=== PATIENT | female | born 1965 | race Caucasian/White ===

== ENCOUNTER 2017-03-04 13:08 | Emergency (ER) | payer MEDICAID ==
[~2017-03-04] VITALS: Wt 47.5 kg
[~2017-03-04 13:08] MED LIST: ALPR0.5T PO; BISA-57 PO; CARAS PO; ESOM40CA PO; HYDR-762 PO; LD2VS100B MM; LORA1TAB PO; NA P118E PR; ONDA4TAB35 PO; PARO20TA58 PO; POLY17PO6 PO; SENN-36 PO
--- NOTE | 2017-03-04 13:54 | ERA ---
ER Documentation Chief Complaint Date/Time DATE: 03/04/17 TIME: 13:53 Chief Complaint Chronic abdominal pain HPI The patient is a 51-year-old female, presenting to the ER because of chronic abdominal pain. She was seen by her general surgeon Dr. Arreguin who sent her to the ER. She was seen by heel painter when she was hospitalized about 2 months, however she did not follow-up with him as an outpatient. He denies fever, chills, neck pain, chest pain. She denies nausea, vomiting, dysuria, diarrhea, constipation. Past medical history: History of breast cancer status post chemotherapy and radiation therapy, chronic abdominal pain, anemia, GERD, depression Past surgical history: Right partial mastectomy, some of obstruction, appendectomy ROS All systems reviewed and are negative except as per history of present illness. Medications Home Meds Active Scripts Hydrocodone/Acetaminophen ([place] 5-325 Tablet) 1 Each Tablet, 1 EACH PO Q6, #10 TAB Prov:ALEX DE LA TORRE MD 03/04/17 Tramadol HCl (Tramadol HCl) 50 Mg Tablet, 50 MG PO Q6 Y for PAIN, #20 TAB Prov:ALEX DE LA TORRE MD 03/04/17 Reported Medications Esomeprazole Mag Trihydrate (Nexium) 40 Mg Capsule.dr, 40 MG PO QAM 01/31/16 Paroxetine Hcl* (Paxil*) 20 Mg Tablet, 20 MG PO DAILY, TAB 03/29/15 Discontinued Scripts Hydrocodone Bit-Acetaminophen* ([place]*) 10-325 Mg Tablet, 1 TAB PO Q4H Y for PAIN, #20 TAB Prov:ANGE WATTS DO 02/19/16 Lorazepam* (Lorazepam*) 1 Mg Tablet, 1 MG PO Q8 Y for ANXIETY, #20 TAB Prov:ANGE WATTS DO 02/19/16 Lidocaine Viscous 2%* (Lidocaine Viscous 2%*) 100 Ml Soln, 15 ML MM Q 3-4H, # 120 ML Prov:ANGE WATTS DO 02/19/16 Na Phos,M-B/Na Phos,Di-Ba* (Fleet* Enema) 118 Ml Enema, 118 ML DE DAILY Y for CONSTIPATION, #5 ENEMA Prov:ALEX DE LA TORRE MD 02/17/16 Na Phos,M-B/Na Phos,Di-Ba* (Fleet* Enema) 118 Ml Enema, 118 ML DE Q48H Y for CONSTIPATION, #10 ENEMA Prov:ALEX DE LA TORRE MD 02/17/16 Polyethylene Glycol* (Miralax*) 17 Gm Powd.pack, 17 GM PO DAILY, #7 Prov:ALEX DE LA TORRE MD 02/17/16 Ondansetron Hcl* (Zofran* ODT) 4 mg -ODT Tab.disper, 4 MG PO Q6H Y for NAUSEA/ VOMITING, #20 TAB Prov:BURNETT,JIM V. WELD ENGINEER 02/16/16 Hydrocodone Bit-Acetaminophen* ([place]*) 10-325 Mg Tablet, 1 TAB PO Q4H Y for PAIN, #20 TAB Prov:BURNETT,JIM V. WELD ENGINEER 02/16/16 Bisacodyl* (Dulcolax*) 5 Mg Tablet.dr, 10 MG PO DAILY Y for CONSTIPATION for 30 Days, TAB Prov:BURNETT,JIM V. WELD ENGINEER 02/16/16 Sucralfate* (Carafate*) 1 Gm/10 Ml Susp, 1 GM PO QID for 30 Days, EA Prov:BURNETT,JIM V. WELD ENGINEER 02/16/16 Sennosides* (Senokot*) 1 Tab Tab, 2 TAB PO BID for 30 Days, TAB Prov:BURNETT,JIM V. WELD ENGINEER 02/16/16 Alprazolam* (Xanax*) 0.5 Mg Tab, 1 MG PO Q8H Y for ANXIETY, #30 TAB Prov:CONOR AMOR 06/13/15 Allergies Allergies: Coded Allergies: sulfamethoxazole (Unverified Allergy, Unknown, 02/13/16) trimethoprim (Unverified Allergy, Unknown, 02/13/16) PMhx/Soc History of Surgery: Yes (mastectomy) Anesthesia Reaction: No Hx Neurological Disorder: No Hx Respiratory Disorders: No Hx Cardiac Disorders: No Hx Psychiatric Problems: No Hx Miscellaneous Medical Probl: Yes (breast Ca, getting radiation) Hx Alcohol Use: No Hx Substance Use: No Hx Tobacco Use: No Physical Exam Vitals Vital Signs Date Time Temp Pulse Resp B/P Pulse Ox O2 Delivery O2 Flow Rate FiO2 03/04/17 16:38 91 12 111/74 100 Room Air 03/04/17 13:13 98.2 94 20 108/55 96 Physical Exam Const: No acute distress. Head: Atraumatic. Eyes: Normal Conjunctiva. ENT: Normal External Ears, Nose and Mouth. Neck: Full range of motion. No meningismus. Resp: Clear to auscultation bilaterally. Cardio: Regular rate and rhythm, no murmurs. Abd: Soft, non distended, normal bowel sounds, diffuse and vague abdominal tenderness, no rigidity, rebound, CVA tenderness Skin: No petechiae or rashes. Back: No midline or flank tenderness. Ext: No cyanosis, or edema. Neur: Awake and alert. No focal deficit Psych: Normal Mood and Affect. Result Diagram: 03/04/17 1435 03/04/17 1435 Results 24 hrs Laboratory Tests Test 03/04/17 14:35 03/04/17 14:45 White Blood Count 5.610^3/ul Red Blood Count 4.7510^6/ul Hemoglobin 13.9g/dl Hematocrit 41.9% Mean Corpuscular Volume 88.2fl Mean Corpuscular Hemoglobin 29.3pg Mean Corpuscular Hemoglobin Concent 33.2g/dl Red Cell Distribution Width 12.8% Platelet Count 41468^3/UL Mean Platelet Volume 10.0fl Neutrophils % 54.1% Lymphocytes % 36.3% Monocytes % 7.0% Eosinophils % 1.6% Basophils % 0.5% Nucleated Red Blood Cells % 0.0/100WBC Neutrophils # 3.010^3/ul Lymphocytes # 2.010^3/ul Monocytes # 0.410^3/ul Eosinophils # 0.110^3/ul Basophils # 0.010^3/ul Nucleated Red Blood Cells # 0.010^3/ul Sodium Level 141mmol/L Potassium Level 3.7mmol/L Chloride Level 98mmol/L Carbon Dioxide Level 30mmol/L Anion Gap 17 Blood Urea Nitrogen 8mg/dl Creatinine 0.76mg/dl Glucose Level 94mg/dl Calcium Level 9.7mg/dl Total Bilirubin 0.3mg/dl Direct Bilirubin 0.00mg/dl Indirect Bilirubin 0.3mg/dl Aspartate Amino Transf (AST/SGOT) 42IU/L Alanine Aminotransferase (ALT/SGPT) 66IU/L Alkaline Phosphatase 85IU/L Total Protein 7.8g/dl Albumin 5.0g/dl Globulin 2.80g/dl Albumin/Globulin Ratio 1.78 Lipase 28U/L Bedside Urine pH (LAB) 8.5 Bedside Urine Protein (LAB) Negative Bedside Urine Glucose (UA) Negative Bedside Urine Ketones (LAB) Negative Bedside Urine Blood Trace-intact Bedside Urine Nitrite (LAB) Negative Bedside Urine Leukocyte Esterase (L Negative Current Medications Medications (Trade) Dose Ordered Sig/[place] Route PRN Reason Start Time Stop Time Status Last Admin Dose Admin Sodium Chloride (NS) 1,000 ml @ 1,000 mls/hr Q1H STAT IV 03/04/17 14:10 03/04/17 15:09 DC 03/04/17 14:45 Morphine Sulfate (morphine) 2 mg ONCE STAT IV 03/04/17 14:10 03/04/17 14:11 Cancel Ondansetron HCl (Zofran Inj) 4 mg ONCE STAT IV 03/04/17 14:10 03/04/17 14:12 DC 03/04/17 14:44 Hydromorphone HCl (Dilaudid) 1 mg ONCE STAT IV 03/04/17 14:41 03/04/17 14:43 DC 03/04/17 14:45 Diphenhydramine HCl (Benadryl) 25 mg ONCE ONCE IV 03/04/17 16:00 03/04/17 16:01 DC 03/04/17 15:36 Diphenhydramine HCl (Benadryl) 50 mg STK-MED ONCE .ROUTE 03/04/17 15:33 03/04/17 15:34 DC Procedures/[place] [address] Radiology Main Line: [phone] DIAGNOSTIC IMAGING REPORT Patient: MELO DUBON : 1965 Age: 51 Sex: F MR #: [id number] DOS: 03/04/17 1410 Ordering MD: ALEX DE LA TORRE MD Location: E/R Room/Bed: PROCEDURE: XR Chest. CLINICAL INDICATION: chest pain TECHNIQUE: Single frontal view of the chest was obtained COMPARISON: 02/13/16 FINDINGS: The heart and mediastinum are within normal limits. The lungs are clear. There is no pleural effusion or pneumothorax. RPTAT: AA IMPRESSION: No acute disease. .Earnest Wilson MD, Date Time Electronically viewed and signed by .Earnest Wilson MD, MD on 03/04/2017 14: 53 .S/ CC: ALEX DE LA TORRE MD [place] [address] Radiology Main Line: [phone] DIAGNOSTIC IMAGING REPORT Patient: MELO DUBON : 1965 Age: 51 Sex: F MR #: [id number] DOS: 03/04/17 1410 Ordering MD: ALEX DE LA TORRE MD Location: E/R Room/Bed: PROCEDURE: CT Abdomen and pelvis without contrast. CLINICAL INDICATION: Abdominal pain. Nausea and vomiting. TECHNIQUE: CT scan of the abdomen and pelvis with contrast was performed on a multidetector high-resolution CT scan. . Coronal and sagittal reformatted images were obtained from the axial source images. Standard CT scan of the abdomen pelvis without contrast protocols were performed. The total exam CTDI equals 4.7 mGy and the total exam DLP equals 233.71 mGy-cm. One or more of the following dose reduction techniques were used: - Automated exposure control. - Adjustment of the mA and/or kV according to patient size. Use of iterative reconstruction technique. COMPARISON: CT abdomen pelvis with contrast 02/13/2016 FINDINGS: Again noted is ill-defined low density lesions in the lateral mid to superior and posterior mid to superior right lobe of the liver which correspond to hemangiomas previously described. No new hepatic lesions are demonstrated. The gallbladder is distended but otherwise unremarkable. No evidence biliary ductal dilation. The kidneys are normal in size without renal calcified calculi, hydronephrosis or intra renal masses bilaterally. The ureters are unremarkable. Urinary bladder is unremarkable. The spleen pancreas and adrenal glands are unremarkable. The stomach, small bowel and large bowel are unremarkable. No CT evidence of appendicitis. Negative for intra-abdominal free air, free fluid, abscesses or lymphadenopathy. There is mild dependent lung atelectasis and left basilar scarring. The lung bases are otherwise unremarkable. Stable small anterior inferior right lateral T11 vertebral body lucent lesion. There are no osteoblastic/osteolytic lesions. There are degenerative changes lower thoracic and lumbar spine. There are no acute osseous findings. IMPRESSION: 1. Stable to ill-defined low density lesions involving the right lobe of the liver which on previous studies were demonstrated to represent hemangiomas. 2. No evidence of calcified urinary calculi or obstructive uropathy. 3. No evidence of gastrointestinal disease. Negative for intra-abdominal free air fluid abscesses or lymphadenopathy. RPTAT:AAJJ Physician Jaimee Date Time Electronically viewed and signed by Physician Jaimee on 03/04/2017 15:33 BM/ CC: ALEX DE LA TORRE MD MEDICAL MAKING DECISION: The patient is a 51-year-old female, presenting with chronic abdominal pain of unclear etiology. She was treated with Dilaudid 1 mg IV for pain and Zofran 4 mg IV for nausea and 1 L normal subacute acute dehydration with good response. The differential diagnoses considered include but are not limited to cholelithiasis, cholecystitis, cystitis, pancreatitis, hepatitis, gastritis, peptic ulcer disease, gastric ulcer, appendicitis, diverticulitis, cholangitis, choledocholithiasis, partial small bowel obstruction. Departure Diagnosis: Primary Impression: Abdominal pain Condition: Good Comments She was discharged with [place] I discussed the findings with the patient. I advised the patient to follow-up with the primary physician in about 1-2 days, sooner if needed and return if any concern. ALEX DE LA TORRE MD March 04, 2017 13:54
[2017-03-04] MEDS ORDERED: ONDANSETRON 4 MG INJ IV STA (14:10)
[2017-03-04] MEDS ORDERED: morphine 2 MG INJ IV STA (14:10)
[2017-03-04] MEDS ORDERED: SOD CHLORIDE 0.9% 1,000 ML IV STA (14:10)
[2017-03-04] MEDS ORDERED: HYDROmorphONE 1 MG/ML SYG IV STA (14:41)
[2017-03-04 14:44] LABS: URINE BLOOD (Dip) POC Trace-intact (NEGATIVE)
--- NOTE | 2017-03-04 14:53 | RADRPT ---
PROCEDURE: XR Chest. CLINICAL INDICATION: chest pain TECHNIQUE: Single frontal view of the chest was obtained COMPARISON: 02/13/16 FINDINGS: The heart and mediastinum are within normal limits. The lungs are clear. There is no pleural effusion or pneumothorax. RPTAT: AA IMPRESSION: No acute disease. .Earnest Wilson MD, Date Time Electronically viewed and signed by .Earnest Wilson MD, on 03/04/2017 14:53 .S/
[2017-03-04 14:57] LABS: ADD SCAN DIFF NO
[2017-03-04 14:58] LABS: BASOPHILS % 0.5 % (0.0-2.0); EOSINOPHILS # 0.1 10^3/ul (0.0-0.5); EOSINOPHILS % 1.6 % (0.0-7.0); HEMATOCRIT 41.9 % (37.0-47.0); HEMOGLOBIN 13.9 g/dl (12.0-16.0); LYMPHOCYTES % 36.3 % (15.0-51.0); MEAN CORPUSCULAR HEMOGLOBIN 29.3 pg (29.0-33.0); MEAN CORPUSCULAR HGB CONC 33.2 g/dl (32.0-37.0); MEAN CORPUSCULAR VOLUME 88.2 fl (82.0-101.0); MONOCYTE # 0.4 10^3/ul (0.3-0.9); NEUTROPHILS % 54.1 % (39.0-77.0); PLATELET COUNT 270 10^3/UL (140-415); RED BLOOD COUNT 4.75 10^6/ul (4.20-5.40); RED CELL DISTRIBUTION WIDTH 12.8 % (11.5-14.5); WHITE BLOOD COUNT 5.6 10^3/ul (4.8-10.8)
[2017-03-04 15:19] LABS: POTASSIUM 3.7 mmol/L (3.5-5.1)
[2017-03-04 15:21] LABS: ALBUMIN/GLOBULIN RATIO 1.78; BILIRUBIN,INDIRECT 0.3 mg/dl (0-1.1); BILIRUBIN,TOTAL 0.3 mg/dl (0.2-1.3); CREATININE 0.76 mg/dl (0.44-1.00); TOTAL PROTEIN 7.8 g/dl (6.1-8.1)
[2017-03-04 15:22] LABS: CALCIUM 9.7 mg/dl (8.4-10.2)
[2017-03-04] MEDS ORDERED: DIPHENHYDRAMINE 50 MG INJ ONE (15:33)
--- NOTE | 2017-03-04 15:34 | RADRPT ---
PROCEDURE: CT Abdomen and pelvis without contrast. CLINICAL INDICATION: Abdominal pain. Nausea and vomiting. TECHNIQUE: CT scan of the abdomen and pelvis with contrast was performed on a multidetector high-r esolution CT scan. . Coronal and sagittal reformatted images were obtained from the axial source i mages. Standard CT scan of the abdomen pelvis without contrast protocols were performed. The total exam CTDI equals 4.7 mGy and the total exam DLP equals 233.71 mGy-cm. One or more of the following dose reduction techniques were used: - Automated exposure control. - Adjustment of the mA and/or kV according to patient size. Use of iterative reconstruction technique. COMPARISON: CT abdomen pelvis with contrast 02/13/2016 FINDINGS: Again noted is ill-defined low density lesions in the lateral mid to superior and posterior mid to s uperior right lobe of the liver which correspond to hemangiomas previously described. No new hepati c lesions are demonstrated. The gallbladder is distended but otherwise unremarkable. No evidence b iliary ductal dilation. The kidneys are normal in size without renal calcified calculi, hydronephrosis or intra renal masses bilaterally. The ureters are unremarkable. Urinary bladder is unremarkable. The spleen pancreas and adrenal glands are unremarkable. The stomach, small bowel and large bowel are unremarkable. No CT evidence of appendicitis. Negativ e for intra-abdominal free air, free fluid, abscesses or lymphadenopathy. There is mild dependent lung atelectasis and left basilar scarring. The lung bases are otherwise un remarkable. Stable small anterior inferior right lateral T11 vertebral body lucent lesion. There are no osteobl astic/osteolytic lesions. There are degenerative changes lower thoracic and lumbar spine. There ar e no acute osseous findings. IMPRESSION: 1. Stable to ill-defined low density lesions involving the right lobe of the liver which on previou s studies were demonstrated to represent hemangiomas. 2. No evidence of calcified urinary calculi or obstructive uropathy. 3. No evidence of gastrointestinal disease. Negative for intra-abdominal free air fluid abscesses or lymphadenopathy. RPTAT:AAJJ Physician Jaimee Date Time Electronically viewed and signed by Physician Jaimee on 03/04/2017 15:33 BM/
[2017-03-04] MEDS ORDERED: DIPHENHYDRAMINE 50 MG INJ IV ONE (16:00)
[2017-03-04] MEDS ORDERED: TRAM50TA2 PO (16:25)
[2017-03-04 16:38] VITALS: BP 111/74; PULSE 91; RESP 12
[2017-03-04] MEDS ORDERED: HYDR-906 PO (16:40)
== END 2017-03-04 16:46 | disposition home or self-care (01) ==
LOC: E/R 13:08
DX: R10.84 Generalized abdominal pain (principal); R40.2142 Coma scale, eyes open, spontaneous, at arrival to emergency department; R40.2252 Coma scale, best verbal response, oriented, at arrival to emergency department; R40.2362 Coma scale, best motor response, obeys commands, at arrival to emergency department; Z85.3 Personal history of malignant neoplasm of breast
CPT/HCPCS: 36415; 71010; 74176; 80053; 81003; 83690; 85025; 96374; 96375; J1170; J1200; J2405; J7030; Z7502; J2270

== ENCOUNTER 2017-07-14 12:56 | Emergency (ER) | payer MEDICAID ==
[~2017-07-14] VITALS: Ht 165.1 cm; Wt 48.0 kg
[~2017-07-14 12:56] MED LIST changes: -ALPR0.5T PO; -BISA-57 PO; -CARAS PO; -HYDR-762 PO; +HYDR-906 PO; -LD2VS100B MM; -LORA1TAB PO; -NA P118E PR; -ONDA4TAB35 PO; -POLY17PO6 PO; -SENN-36 PO; +TRAM50TA2 PO
[2017-07-14 12:59] VITALS: Ht 165.1 cm; Wt 48.0 kg
--- NOTE | 2017-07-14 14:24 | ERA ---
ER Documentation Chief Complaint Date/Time DATE: 07/14/17 TIME: 14:23 Chief Complaint Chronic abdominal pain HPI The patient is a 52-year-old female, presenting with chronic abdominal pain, associated with constipation for the last week. She has presented to the ER multiple times with similar symptoms. He denies fever, chills, neck pain, chest pain, vomiting, dysuria. She does not smoke or drink Past medical history: History of right breast cancer, GERD, chronic abdominal pain, chronic pain syndrome, depression Past surgical history: Small bowel obstruction, appendectomy ROS All systems reviewed and are negative except as per history of present illness. Medications Home Meds Active Scripts Hydrocortisone Acetate (Anusol-Hc) 25 Mg Supp.rect, 1 SUPP MA BID Y for HEMORROID PAIN/ITCHING, #12 SUPP.RECT Prov:ALEX DE LA TORRE MD 07/14/17 Sucralfate* (Carafate*) 1 Gm Tab, 1 GM PO AC MEALS AND BEDTIME for 7 Days, TAB Prov:ALEX DE LA TORRE MD 07/14/17 Mineral Oil* (Fleet* Mineral Oil Enema) 133 Ml Oil, 133 ML MA DAILY Y for CONSTIPATION, #2 ENEMA Prov:ALEX DE LA TORRE MD 07/14/17 Bisacodyl* (Dulcolax*) 5 Mg Tablet.dr, 10 MG MA DAILY Y for CONSTIPATION, #10 TAB Prov:ALEX DE LA TORRE MD 07/14/17 Polyethylene Glycol* (Miralax*) 17 Gm Powd.pack, 17 GM PO DAILY, #7 Prov:ALEX DE LA TORRE MD 07/14/17 Reported Medications Esomeprazole Mag Trihydrate (Nexium) 40 Mg Capsule.dr, 40 MG PO QAM 01/31/16 Paroxetine Hcl* (Paxil*) 20 Mg Tablet, 20 MG PO DAILY, TAB 03/29/15 Discontinued Scripts Hydrocodone/Acetaminophen ([place] 5-325 Tablet) 1 Each Tablet, 1 EACH PO Q6, #10 TAB Prov:ALEX DE LA TORRE MD 03/04/17 Tramadol HCl (Tramadol HCl) 50 Mg Tablet, 50 MG PO Q6 Y for PAIN, #20 TAB Prov:ALEX DE LA TORRE MD 03/04/17 Allergies Allergies: Coded Allergies: morphine (Verified Allergy, Severe, rash, 07/14/17) sulfamethoxazole (Unverified Allergy, Unknown, 07/14/17) trimethoprim (Unverified Allergy, Unknown, 07/14/17) PMhx/Soc History of Surgery: Yes (mastectomy) Anesthesia Reaction: No Hx Neurological Disorder: No Hx Respiratory Disorders: No Hx Cardiac Disorders: No Hx Psychiatric Problems: No Hx Miscellaneous Medical Probl: Yes (breast Ca, getting radiation, GERD) Hx Alcohol Use: No Hx Substance Use: No Hx Tobacco Use: No Physical Exam Vitals Vital Signs Date Time Temp Pulse Resp B/P Pulse Ox O2 Delivery O2 Flow Rate FiO2 07/14/17 18:19 98.3 72 16 104/68 96 Room Air 07/14/17 12:59 98.4 76 18 92/66 96 Physical Exam Const: No acute distress.Dehydrated Head: Atraumatic. Eyes: Normal Conjunctiva. ENT: Normal External Ears, Nose and Mouth. Neck: Full range of motion. No meningismus. Resp: Clear to auscultation bilaterally. Cardio: Regular rate and rhythm. Abd: Soft, non distended, normal bowel sounds, Vague and mild diffuse abdominal tenderness, no rigidity, rebound, CVA tenderness Skin: No petechiae or rashes. Back: No midline or flank tenderness. Ext: No cyanosis, or edema. Neur: Awake and alert. No focal deficit Psych: Normal Mood and Affect.. Result Diagram: 07/14/17 1500 07/14/17 1500 Results 24 hrs Laboratory Tests Test 07/14/17 15:00 07/14/17 15:58 White Blood Count 7.210^3/ul Red Blood Count 4.2910^6/ul Hemoglobin 12.7g/dl Hematocrit 38.0% Mean Corpuscular Volume 88.6fl Mean Corpuscular Hemoglobin 29.6pg Mean Corpuscular Hemoglobin Concent 33.4g/dl Red Cell Distribution Width 12.5% Platelet Count 83577^3/UL Mean Platelet Volume 10.1fl Neutrophils % 53.9% Lymphocytes % 35.3% Monocytes % 7.0% Eosinophils % 3.1% Basophils % 0.6% Nucleated Red Blood Cells % 0.0/100WBC Neutrophils # 3.910^3/ul Lymphocytes # 2.510^3/ul Monocytes # 0.510^3/ul Eosinophils # 0.210^3/ul Basophils # 0.010^3/ul Nucleated Red Blood Cells # 0.010^3/ul Sodium Level 138mmol/L Potassium Level 4.0mmol/L Chloride Level 99mmol/L Carbon Dioxide Level 31mmol/L Anion Gap 12 Blood Urea Nitrogen 7mg/dl Creatinine 0.78mg/dl Glucose Level 92mg/dl Calcium Level 9.5mg/dl Total Bilirubin 0.2mg/dl Direct Bilirubin 0.00mg/dl Indirect Bilirubin 0.2mg/dl Aspartate Amino Transf (AST/SGOT) 21IU/L Alanine Aminotransferase (ALT/SGPT) 38IU/L Alkaline Phosphatase 79IU/L Total Protein 7.3g/dl Albumin 4.6g/dl Globulin 2.70g/dl Albumin/Globulin Ratio 1.70 Lipase 41U/L Bedside Urine pH (LAB) 7.0 Bedside Urine Protein (LAB) Negative Bedside Urine Glucose (UA) Negative Bedside Urine Ketones (LAB) Negative Bedside Urine Blood Negative Bedside Urine Nitrite (LAB) Negative Bedside Urine Leukocyte Esterase (L Negative Current Medications Medications (Trade) Dose Ordered Sig/[place] Route PRN Reason Start Time Stop Time Status Last Admin Dose Admin Sodium Chloride (NS) 1,490 ml @ 1,490 mls/hr BOLUS X1 ONCE IV 07/14/17 15:00 07/14/17 15:59 DC 07/14/17 15:21 Ondansetron HCl (Zofran Inj) 4 mg ONCE STAT IV 07/14/17 14:52 07/14/17 14:54 DC 07/14/17 15:21 Hydromorphone HCl (Dilaudid) 0.5 mg ONCE STAT IV 07/14/17 15:45 07/14/17 15:49 DC 07/14/17 16:01 Procedures/[place] [address] Radiology Main Line: [phone] DIAGNOSTIC IMAGING REPORT Patient: MELO DUBON : 1965 Age: 52 Sex: F MR #: [id number] DOS: 07/14/17 1452 Ordering MD: ALEX DE LA TORRE MD Location: E/R Room/Bed: PROCEDURE: CT Abdomen and Pelvis without contrast. CLINICAL INDICATION: Abdominal pain TECHNIQUE: CT of the abdomen and pelvis was performed on a multi-detector scanner without IV contrast. Coronal and sagittal images were reformatted from the axial data set. One or more of the following dose reduction techniques were used: automated exposure control, adjustment of the mA and/or kV according to patient size, use of iterative reconstruction technique. CTDI = 4.99 mGy. DLP = 254.1 mGy-cm. COMPARISON: CT, 03/04/2017 and 02/13/2016 FINDINGS: The lung bases are clear. The heart size is normal, without pericardial effusion. Hepatic hypodensities are again noted, stable over time, corresponding to benign hemangioma is seen on prior exam. Gallbladder, biliary tree, pancreas, spleen, adrenal glands and kidneys are unremarkable. No urolithiasis or obstructive uropathy is identified. The stomach is grossly unremarkable. The aorta is of normal caliber. There is no retroperitoneal lymphadenopathy. The ayah hepatis region is clear. No bowel obstruction, free intraperitoneal air or abscess is identified. Mild to moderate retained fecal material is suggestive of constipation. No diverticulosis, diverticulitis, colitis or appendicitis is seen. Urinary bladder is grossly unremarkable. Uterus is surgically absent. No pelvic mass, free fluid or lymphadenopathy is identified. The surrounding osseous structures are unremarkable. No osteolytic or osteoblastic lesion is detected. IMPRESSION: 1. Mild to moderate amount of retained fecal material is suggestive of constipation. 2. Uterus is surgically absent. 3. No mass, lymphadenopathy, or focal acute inflammatory process is identified. RPTAT: AAQQ .Erik Knowles MD, MD Date Time Electronically viewed and signed by .Erik Knowles MD, MD on 07/14/2017 16: 02 .R/ CC: ALEX DE LA TORRE MD MEDICAL MAKING DECISION: The patient is a 52-year-old female, presenting with chronic abdominal pain, constipation, acute dehydration. She was treated with normosaline 30 mL/kg IV for acute dehydration, Zofran 4mg IV for nausea, Dilaudid 0.5 mg IV for nausea with good response. The differential diagnoses considered include but are not limited to cholelithiasis, cholecystitis, cystitis, pancreatitis, hepatitis, gastritis, peptic ulcer disease, gastric ulcer, appendicitis, diverticulitis, cholangitis, choledocholithiasis, partial small bowel obstruction. Departure Diagnosis: Primary Impression: Chronic abdominal pain Additional Impressions: Constipation Dehydration Condition: Good Additional Instructions: She was discharged with MiraLAX, Dulcolax suppository, Fleet enema X I discussed the findings with the patient. I advised the patient to follow-up with the primary physician in about 1-2 days, sooner if needed and return if any concern. ALEX DE LA TORRE MD Jul 14, 2017 14:24
[2017-07-14] MEDS ORDERED: ONDANSETRON 4 MG INJ IV STA (14:52)
[2017-07-14] MEDS ORDERED: SOD CHLORIDE 0.9% IV ONE (15:00)
[2017-07-14 15:26] LABS: BASOPHILS % 0.6 % (0.0-2.0); EOSINOPHILS # 0.2 10^3/ul (0.0-0.5); EOSINOPHILS % 3.1 % (0.0-7.0); HEMOGLOBIN 12.7 g/dl (12.0-16.0); LYMPHOCYTES # 2.5 10^3/ul (0.8-2.9); LYMPHOCYTES % 35.3 % (15.0-51.0); MEAN CORPUSCULAR HEMOGLOBIN 29.6 pg (29.0-33.0); MEAN CORPUSCULAR HGB CONC 33.4 g/dl (32.0-37.0); MEAN CORPUSCULAR VOLUME 88.6 fl (82.0-101.0); MEAN PLATELET VOLUME 10.1 fl (7.4-10.4); MONOCYTE # 0.5 10^3/ul (0.3-0.9); NEUTROPHIL # 3.9 10^3/ul (1.6-7.5); NEUTROPHILS % 53.9 % (39.0-77.0); PLATELET COUNT 261 10^3/UL (140-415); RED BLOOD COUNT 4.29 10^6/ul (4.20-5.40); RED CELL DISTRIBUTION WIDTH 12.5 % (11.5-14.5); WHITE BLOOD COUNT 7.2 10^3/ul (4.8-10.8)
[2017-07-14] MEDS ORDERED: HYDROmorphONE 1 MG/ML SYG IV STA (15:45)
[2017-07-14 15:46] LABS: ALBUMIN 4.6 g/dl (3.3-4.9); ALBUMIN/GLOBULIN RATIO 1.7; BILIRUBIN,INDIRECT 0.2 mg/dl (0-1.1); BILIRUBIN,TOTAL 0.2 mg/dl (0.2-1.3); CALCIUM 9.5 mg/dl (8.4-10.2); CREATININE 0.78 mg/dl (0.44-1.00); TOTAL PROTEIN 7.3 g/dl (6.1-8.1)
[2017-07-14 15:52] LABS: URINE BLOOD (Dip) POC Negative (NEGATIVE)
--- NOTE | 2017-07-14 16:02 | RADRPT ---
PROCEDURE: CT Abdomen and Pelvis without contrast. CLINICAL INDICATION: Abdominal pain TECHNIQUE: CT of the abdomen and pelvis was performed on a multi-detector scanner without IV contr ast. Coronal and sagittal images were reformatted from the axial data set. One or more of the foll owing dose reduction techniques were used: automated exposure control, adjustment of the mA and/or k V according to patient size, use of iterative reconstruction technique. CTDI = 4.99 mGy. DLP = 254. 1 mGy-cm. COMPARISON: CT, 03/04/2017 and 02/13/2016 FINDINGS: The lung bases are clear. The heart size is normal, without pericardial effusion. Hepatic hypodens ities are again noted, stable over time, corresponding to benign hemangioma is seen on prior exam. G allbladder, biliary tree, pancreas, spleen, adrenal glands and kidneys are unremarkable. No urolithi asis or obstructive uropathy is identified. The stomach is grossly unremarkable. The aorta is of normal caliber. There is no retroperitoneal lymphadenopathy. The ayah hepatis reg ion is clear. No bowel obstruction, free intraperitoneal air or abscess is identified. Mild to moderate retained f ecal material is suggestive of constipation. No diverticulosis, diverticulitis, colitis or appendici tis is seen. Urinary bladder is grossly unremarkable. Uterus is surgically absent. No pelvic mass, f ree fluid or lymphadenopathy is identified. The surrounding osseous structures are unremarkable. No osteolytic or osteoblastic lesion is detect ed. IMPRESSION: 1. Mild to moderate amount of retained fecal material is suggestive of constipation. 2. Uterus is surgically absent. 3. No mass, lymphadenopathy, or focal acute inflammatory process is identified. RPTAT: AAQQ .Erik Knowles MD, Date Time Electronically viewed and signed by .Erik Knowles MD, on 07/14/2017 16:02 .R/
[2017-07-14] MEDS ORDERED: POLY17PO6 PO (17:57)
[2017-07-14] MEDS ORDERED: BISA-57 PR (17:58)
[2017-07-14] MEDS ORDERED: MINE133E23 PR (17:59)
[2017-07-14] MEDS ORDERED: SUCR1TAB56 PO (18:15)
[2017-07-14] MEDS ORDERED: HYDR25SU23 PR (18:16)
[2017-07-14 18:19] VITALS: BP 104/68; PULSE 72; RESP 16; TEMP 98.3
== END 2017-07-14 18:21 | disposition home or self-care (01) ==
LOC: E/R 12:56
DX: K59.00 Constipation, unspecified (principal); E86.0 Dehydration; R40.2142 Coma scale, eyes open, spontaneous, at arrival to emergency department; R40.2252 Coma scale, best verbal response, oriented, at arrival to emergency department; R40.2362 Coma scale, best motor response, obeys commands, at arrival to emergency department; Z85.3 Personal history of malignant neoplasm of breast
CPT/HCPCS: 36415; 74176; 80053; 81003; 83690; 85025; 96374; 96375; J1170; J2405; Z7502

== ENCOUNTER 2017-07-23 13:05 | Day surgery (SDC) | payer MEDICAID ==
[~2017-07-23] VITALS: Ht 152.4 cm; Wt 46.8 kg
[~2017-07-23 13:05] MED LIST changes: +BISA-57 PR; -HYDR-906 PO; +HYDR25SU23 PR; +MINE133E23 PR; +POLY17PO6 PO; +SUCR1TAB56 PO; -TRAM50TA2 PO
[2017-07-23 13:47] VITALS: Ht 152.4 cm; Wt 46.8 kg
[2017-07-23] MEDS ORDERED: ONDA4TAB95 PO (13:59)
[2017-07-23] MEDS ORDERED: ALPR0.5T PO (13:59)
[2017-07-23 14:25] VITALS: BP 119/65; PULSE 90; RESP 12
[2017-07-23] MEDS ORDERED: PROPOFOL 60 ML ONE (14:42)
[2017-07-23] MEDS ORDERED: LIDOCAINE 2% (SDV) 5 ML INJ ONE (14:42)
--- NOTE | 2017-07-23 15:25 | OPPN ---
Date/Time of Note Date/Time of Note DATE: 07/23/17 TIME: 15:19 Proc Note GI Procedure Date 07/23/17 Pre-procedure Diagnosis * Abdominal pain/colorectal cancer screening Post-procedure Diagnosis Impression: * Extremely poor preparation precludes adequate examination Procedure Performed: Colonoscopy Surgeon SANDRO GUTIERREZ MD Marine Diver none Anesthesia Type: MAC Anesthesiologist: OLGA GIBSON MD Tourniquet Time none EBL none Transfusion required none Grafts/Implants none Tubes/Drains none Complication(s) none Pt Condition post procedure: stable Disposition: home Indications: screening/surveillance, other (Abdominal pain) Procedure Description After informed consent, with the patient/relatives understanding the procedure, its indications and potential risks and complications, including but not limited to: Allergic reaction, bleeding, perforation, infection, and after all pertinent questions were answered to the patient's satisfaction, the patient/ relatives signed the witnessed informed consent. Following this, premedication was administered slowly IV push under careful cardiovascular and respiratory monitoring with pulse OXIMETRY, automatic blood pressure, and field clinical engineer. Once the sedative effect was achieved, the patient was placed in the left lateral decubitus position, digital rectal examination was performed. The colonoscope was then introduced externally poor preparation precluded adequate examination the instrument was advanced under visual control and extensive lavage was applied. The instrument was advanced to the splenic flexure at which point the procedure was terminated due to extremely poor preparation. PREPARATION QUALITY: , Extremely poor preparation, procedure incomplete and inadequate RECTAL EXAM: The anorectal area was visualized examined and digital rectal examination performed with the following findings: No evidence of perirectal disease, no masses. COLONIC MUCOSA: The mucosa of all segments of the colon was carefully examined and showed the following findings: The preparation is extremely poor and precludes adequate examination of the procedure was terminated as well as the splenic flexure and realized that the conditions were worsening significantly. The limited examined mucosa appears within normal limits but the quality of the examination is extremely poor. The instrument was then withdrawn, the patient tolerated the procedure well and was transferred out of the Endoscopy Suite awake and in good condition to continue recovery under observation. Copies To: CC: SANDRO GUTIERREZ MD, MORDO MD Jul 23, 2017 15:25
--- NOTE | 2017-07-23 15:29 | OPPN ---
Date/Time of Note Date/Time of Note DATE: 07/23/17 TIME: 15:25 Proc Note GI Procedure Date 07/23/17 Pre-procedure Diagnosis * Abdominal pain Post-procedure Diagnosis Impression: * Moderate gastritis. Rule out H. pylori infection. Biopsies obtained * Otherwise normal EGD * Random biopsies obtained second portion of duodenum to rule out celiac disease Plan: * Continue Nexium * Carafate 1 g 3 times daily before meals * Review pathology * Follow-up as previously scheduled . Procedure Performed: Endoscopy (Plus biopsies) Surgeon see signature line [place] Consultant none Anesthesia Type: MAC Anesthesiologist: OLGA GIBSON MD Tourniquet Time none EBL none Transfusion required none Biopsy 1: Gastric body and antrum/rule out H. pylori Biopsy 2: Second portion of the duodenum/rule out celiac disease Grafts/Implants none Tubes/Drains none Complication(s) none Pt Condition post procedure: stable Disposition: home Indications: other (Abdominal pain) Procedure Description Preoperative Diagnosis: After informed consent, with the patient/relatives understanding the procedure, its indications, potential risks and complications, including but not limited to : allergic reaction, bleeding, perforation or infection, and after all pertinent questions were answered to the patients satisfaction, the patient/ relatives signed witnessed informed consent. Following this, premedication was administered slowly IV push under careful cardiovascular and respiratory monitoring with pulse oximetry, automatic blood pressure, and shelter monitor. Once the sedative effect was achieved the patient was place in the left lateral decubitus, the panendoscope was introduced and advanced under visual control. Careful examination of the upper gastrointestinal tract, both on insertion as well as withdrawal of the instrument disclosing the following findings: ESOPHAGUS: the mucosa of the entire esophagus was carefully examined and showed the following findings: the mucosa appears within normal limits. There is no evidence of esophagitis, varices, neoplasm, or stricture. No Hiatal Hernia identified. STOMACH: Upon entrance to the stomach air was insufflated, the gastric dumont distended normally. The mucosa of the fundus, body and antrum of the stomach was carefully examined both head-on and on retroflexion, and showed the following findings: There is mild to moderate erythema and edema of the mucosa of the body and antrum of the stomach. Biopsies were obtained to rule out H. pylori infection. Otherwise the mucosa appears within normal limits with no abnormalities. There is no evidence of ulcers or neoplasm. PYLORUS: The pylorus was carefully examined and showed the following findings: the pylorus appears patent and within normal limits, with no evidence of gastric outlet obstruction. DUODENUM: The duodenal mucosa was carefully examined in the duodenal bulb as well as the second portion of the duodenum and showed the following findings: the mucosa appears unremarkable with no evidence of duodenitis, ulcer or neoplasm. Biopsies were obtained second portion of the duodenum to rule out celiac disease. Copies To: CC: SANDRO GUTIERREZ MD, MORDO MD Jul 23, 2017 15:29
[2017-07-23 16:20] VITALS: BP 124/68; PULSE 66; RESP 14
== END 2017-07-23 16:00 | disposition home or self-care (01) ==
LOC: GIL 13:05
PROVIDERS: ATTEND Internal Medicine Gastroenterology
DX: Z12.11 Encounter for screening for malignant neoplasm of colon (principal); K29.50 Unspecified chronic gastritis without bleeding; Z88.5 Allergy status to narcotic agent; Z88.8 Allergy status to other drugs, medicaments and biological substances
CPT/HCPCS: 43239; 45378; 88305; 88312; Z7610

== ENCOUNTER → 2018-09-23 | Outpatient (CLI) | END | disposition home or self-care (01) ==